=== PATIENT | female | born 1985 | race Caucasian/White ===

== ENCOUNTER 2018-11-25 12:28 | Emergency (ER) | payer SELFPAY ==
[~2018-11-25] VITALS: Ht 167.6 cm; Wt 99.1 kg
[2018-11-25] MEDS ORDERED: ZOLOFT 50MG50 MG PO (13:19)
[2018-11-25 13:57] VITALS: TEMP 97.9
[2018-11-25 14:10] LABS: BASO % 0.5 % (0.0-2.0); EOS # 0.1 (0.0-0.7); EOS % 1.4 % (0-4.0); GRAN # 3.8 (1.4-6.5); GRAN % 65.5 % (42.2-75.2); HEMATOCRIT 41.7 % (37.0-47.0); HEMOGLOBIN 13.8 g/dl (12.5-16.0); LYMPH # 1.5 (1.2-3.4); LYMPH % 25.3 % (20.0-51.0); MEAN CELL VOLUME 84 fl (80.0-100.0); MEAN CORPUSCULAR HEMOGLOBIN 28 pg (27.0-31.0); MEAN CORPUSCULAR HGB CONC 33 g/dl (33.0-37.0); MEAN PLATELET VOLUME 9.5 fl (7.4-10.4); MONO # 0.4 (0.1-0.6); MONO % 7.1 % (1.7-9.3); PLATELET COUNT 247 K/mm3 (130-400); RED BLOOD COUNT 4.94 M/mm3 (4.10-5.30)
[2018-11-25 14:37] VITALS: BP 95/57; PULSE 55
[2018-11-25 14:50] LABS: ERYTHROCYTE SEDIMENTATION RATE 7 mm/hr (0-20)
== END 2018-11-25 15:09 | disposition home or self-care (01) ==
LOC: COL.ER 12:28
PROVIDERS: Physician Assistant
DX: M25.562 Pain in left knee (principal)
CPT/HCPCS: L1846

== ENCOUNTER 2024-03-29 08:19 | Day surgery (SDC) | payer MEDICAID ==
[~2024-03-29] VITALS: Ht 167.6 cm; Wt 122.6 kg
[~2024-03-29 08:19] MED LIST: LR 1,000 ML IV SCH; Ondansetron 4 MG/2 ML VIAL IV PRN; ZOLOFT 50MG50 MG PO
[2024-03-29 13:19] VITALS: BP 140/90; PULSE 70; TEMP 97.3
[2024-03-29] MEDS ORDERED: Lidocaine PF 2% (20 MG/ML) 5 ML VIAL ONE (13:28)
[2024-03-29] MEDS ORDERED: ZOLOFT 100MG100 MG PO (13:47)
[2024-03-29] MEDS ORDERED: VALTREX1 GM PO (13:48)
[2024-03-29] MEDS ORDERED: ZYRTEC 10MG10 MG PO (13:48)
[2024-03-29] MEDS ORDERED: ABILIFY30 MG PO (13:49)
--- NOTE | 2024-03-29 13:52 | NUR ---
Pt alert, oriented x4, ambulates with steady gait. Admitted ENDO bay 4. Admission assessments complete. Medications, allergies, and pharmacy reviewed. 22G IV inserted into right hand, LR infusing without issue. Resting in recliner chair, feet elevated. Boyfriend brought to bedside. Pt reports prep effective, clear yellow stools. Call light within reach.
[2024-03-29] MEDS ORDERED: PROTONIX 40MG T40 MG PO (15:00)
[2024-03-29 15:10] VITALS: BP 135/78; PULSE 72
[2024-03-29 15:20] VITALS: BP 120/86; PULSE 77
[2024-03-29 15:30] VITALS: BP 126/78; PULSE 78
--- NOTE | 2024-03-29 16:48 | NUR ---
1510 PATIENT RETURNS TO [facility] VIA CART. PT AWAKE AND ALERT. RESPIRATIONS UNLABORED. AMBULATED TO RECLINER CHAIR WITH 2:1 SBA. PT DENIES NAUSEA OR ABDOMINAL PAIN. HOOKED UP TO MONITOR AND VS OBTAINED. CALL LIGHT AT SIDE AND PRESENT. 1520 PATIENT TOLERATING PEPSI AND PUDDING WITHOUT NAUSEA OR DIFFICULTY SWALLOWING. 1530 DR. KHAN IN ROOM SPEAKING WITH PATIENT. 1540 D/C INSTRUCTIONS REVIEWED WITH PATIENT. PT VERBALIZED UNDERSTANDING AND A COPY OF INSTRUCTIONS PROVIDED IN D/C FOLDER. 1550 PATIENT DRESSES SELF. 1555 PT COMPLAINS OF NAUSEA. ZOFRAN 4 MG ADMINISTERED VIA IV. PT VERBALIZES RELIEF. 1605 PATIENT DISCHARGED FROM UNIT VIA W/C TO A PERSONAL VEHICLE. PT LEFT HOSPITAL IN STABLE CONDITION.
== END 2024-03-29 16:05 | disposition home or self-care (01) ==
LOC: SDCO 08:19
DX: K92.1 Melena (principal); K64.0 First degree hemorrhoids
CPT/HCPCS: J2405; J2704; J7120

== ENCOUNTER 2024-06-13 05:26 | Emergency (ER) | payer MEDICAID ==
[~2024-06-13] VITALS: Ht 167.6 cm; Wt 127.3 kg
[~2024-06-13 05:26] MED LIST changes: +ABILIFY30 MG PO; -LR 1,000 ML IV SCH; -Ondansetron 4 MG/2 ML VIAL IV PRN; +PROTONIX 40MG T40 MG PO; +VALTREX1 GM PO; +ZOLOFT 100MG100 MG PO; +ZYRTEC 10MG10 MG PO
[2024-06-13 05:47] VITALS: TEMP 97.6
[2024-06-13] MEDS ORDERED: Ondansetron 4 MG/2 ML VIAL IV ONE (06:15)
[2024-06-13] MEDS ORDERED: Morphine 4 MG/ML VIAL IV ONE (06:15)
[2024-06-13 06:27] LABS: URINE APPEARANCE CLEAR (CLEAR/HAZY); URINE BLOOD 3+ (NEGATIVE); URINE COLOR YELLOW (YELLOW); URINE GLUCOSE NEGATIVE (NEGATIVE); URINE KETONE NEGATIVE (NEGATIVE); URINE NITRATE NEGATIVE (NEGATIVE); URINE PROTEIN(semi-quant) NEGATIVE (NEGATIVE); URINE UROBILINOGEN 0.2 E.U/dL (0.2-1.0)
[2024-06-13 06:57] LABS: COLLECTION METHOD CLEAN CATCH
[2024-06-13 07:02] LABS: BASO % 0.5 % (0.0-2.0); EOS # 0.1 K/mm3 (0.0-0.7); EOS % 2.1 % (0.0-4.0); GRAN # 4.1 K/mm3 (1.4-6.5); GRAN % 67.1 % (42.2-75.2); HEMOGLOBIN 13.4 g/dl (12.5-16.0); LYMPH # 1.5 K/mm3 (1.2-3.4); LYMPH % 23.9 % (20.0-51.0); MEAN CELL VOLUME 83 fl (80.0-100.0); MEAN CORPUSCULAR HEMOGLOBIN 28 pg (27-31); MEAN CORPUSCULAR HGB CONC 34 g/dl (33.0-37.0); MONO # 0.4 K/mm3 (0.1-0.6); MONO % 6.1 % (1.7-9.3); PLATELET COUNT 260 K/mm3 (130-400)
[2024-06-13 07:19] LABS: BILIRUBIN,TOTAL 0.8 mg/dL (0.2-1.2); CALCIUM 10.4 mg/dL (8.4-10.2); CREATININE, serum 0.8 mg/dL (0.57-1.11); MAGNESIUM 2.1 mg/dL (1.6-2.6); POTASSIUM 4.1 mEq/L (3.5-4.5); TOTAL PROTEIN 7.7 g/dl (6.2-8.1)
[2024-06-13 07:24] LABS: TROPONIN-I 0.01 ng/mL (0.00-0.033)
[2024-06-13] MEDS ORDERED: NS 100 ML IV SCH (08:00)
[2024-06-13] MEDS ORDERED: Home HYDROcodone/Acetaminophen 5/325 MG #4 TABS/PACK PO ONE (08:00)
[2024-06-13] MEDS ORDERED: Iohexol 300 - 100 ML VIAL IV ONE (08:02)
[2024-06-13 08:51] VITALS: BP 126/87; PULSE 59
== END 2024-06-13 08:55 | disposition home or self-care (01) ==
LOC: COL.ER 05:26
PROVIDERS: Emergency Medicine
DX: R10.11 Right upper quadrant pain (principal); Z90.49 Acquired absence of other specified parts of digestive tract
CPT/HCPCS: J2270; J2405; Q9967